=== PATIENT | female | born 1995 | race American Indian/Alaskan Native ===

== ENCOUNTER 2017-05-16 11:46 | Emergency (ER) | payer BC ==
[2017-05-16] MEDS ORDERED: Oxycodone/Acetaminophen 5/325 mg Tab PO STA (12:22)
[2017-05-16] MEDS ORDERED: Oxycodone/Acetaminophen 5/325 mg Tab ONE (12:25)
[2017-05-16 14:56] VITALS: PULSE 62; TEMP 98.1; O2SAT 100
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
[2017-05-16 16:59] VITALS: BP 118/64; RESP 16
--- NOTE | 2017-05-17 21:41 | CARD ---
APPROVED REPORT EKG Measurement Heart [id number] <Conclusion> Sinus bradycardia with sinus arrhythmia Incomplete right bundle branch block Borderline ECG
== END 2017-05-16 16:59 | disposition home or self-care (01) ==
LOC: C.ER 11:46
DX: S16.1XXA Strain of muscle, fascia and tendon at neck level, initial encounter (principal); S93.401A Sprain of unspecified ligament of right ankle, initial encounter; S09.90XA Unspecified injury of head, initial encounter; S43.402A Unspecified sprain of left shoulder joint, initial encounter; V49.9XXA Car occupant (driver) (passenger) injured in unspecified traffic accident, initial encounter